=== PATIENT | female | born 1975 | race Caucasian/White ===

== ENCOUNTER 2018-07-26 01:59 | Emergency (ER) | payer OTHER ==
[2018-07-26] MEDS ORDERED: predniSONE TAB* 20 MG PO ONE (02:11)
[2018-07-26] MEDS ORDERED: EPINEPHRINE 1 MG/ML 1 ML VIAL IM ONE (02:11)
--- NOTE | 2018-07-26 02:20 | ED ---
Allergic Reaction/Systemic - HPI Summary HPI Summary: A 43 y/o female presents to [facility] with a chief complaint of a possible allergic reaction the morning of 07/26/18. The patient has a rash around both her upper extremities and feels itchy and swollen. Per triage note the patient "woke up and felt like her throat was closing". At triage she rated her pain as a 0/10 in severity. She claims that she had some SOB but took Zyrtec which has alleviated her pain. She has an inhaler for these allergy related attacks. She claims that she used to have these attacks happen periodically, but claims that she has not had these attacks "in years". Vital signs while in room - HR: 89bpm , O2 Sat: 98, BP 147/94. - History of Current Complaint Chief Complaint: EDAllergicReaction Time Seen by Provider: 07/26/18 02:07 Hx Obtained From: Patient Hx Last Menstrual Period: 05/05/12 Onset/Duration: Sudden Onset, Started hours ago, Still Present Timing: Constant, Lasting Hours Severity Initially: Mild Severity Currently: Mild Pain Intensity: 0 Pain Scale Used: 0-10 Numeric Location: Diffuse Character: Pruritus Aggravating Factor(s): Nothing Alleviating Factor(s): OTC Meds Associated Signs And Symptoms: Positive: Difficulty Breathing, Rash, Throat Tightening - Allergies/Home Medications Allergies/Adverse Reactions: Allergies Allergy/AdvReac Type Severity Reaction Status Date / Time MS Ibuprofen [From Motrin] Allergy Shakes Verified 06/02/12 10:25 MS Sulfa Drugs [Sulfa Drugs] Allergy Unknown Verified 06/02/12 10:25 Reaction Details PMH/Surg Hx/FS Hx/Imm Hx Endocrine/Hematology History: Denies: Hx Diabetes, Hx Thyroid Disease Cardiovascular History: Denies: Hx Hypertension Respiratory History: Denies: Hx Asthma, Hx Chronic Obstructive Pulmonary Disease (COPD) GI History: Denies: Hx Ulcer - Surgical History Surgery Procedure, Year, and Place: 2005 - Tubal Infectious Disease History: Denies: Hx Hepatitis, Hx Human Immunodeficiency Virus (HIV) - Family History Known Family History: Negative: Cardiac Disease, Hypertension, Diabetes - Social History Lives: With Family Alcohol Use: None Substance Use Type: Reports: None Hx Tobacco Use: No Smoking Status (MU): Never Smoked Tobacco Review of Systems Negative: Fever ENT: Other - positive: throat tightness Positive: Shortness Of Breath Positive: Rash All Other Systems Reviewed And Are Negative: Yes Physical Exam - Summary Physical Exam Summary: Appearance: Well-appearing, Well-nourished, lying in bed comfortably Skin: Mild lacy erythema around both upper extremities, no sharmaine urticaria Eyes: sclera anicteric, no conjunctival pallor ENT: mucous membranes moist, pharynx appears normal Neck: Supple, nontender Respiratory: Clear to auscultation, no signs of respiratory distress Cardiovascular: Normal S1, S2. No murmurs. Normal distal pulses in tibial and radial bilaterally. Abdomen: Soft, nontender, normal active bowel sounds present Musculoskeletal: Normal, Strength/ROM Intact Neurological: A&Ox3, awake and alert, mentation is normal, speech is fluent and appropriate Psychiatric: affect is normal, does not appear anxious or depressed Triage Information Reviewed: Yes Vital Signs Reviewed: Yes Allergic Reaction Course/Dx - Course Course Of Treatment: A 43 y/o female presents to [facility] with a chief complaint of a possible allergic reaction the morning of 07/26/18. The patient has a rash around both her upper extremities and feels itchy and swollen. Per triage note the patient "woke up and felt like her throat was closing". At triage she rated her pain as a 0/10 in severity. She claims that she had some SOB but took Zyrtec which has alleviated her pain. She has an inhaler for these allergy related attacks. She claims that she used to have these attacks happen periodically, but claims that she has not had these attacks "in years".The physical exam revealed mild lacy erythema around both upper extremities no sharmaine urticaria. In the ED course the patient was given Epinephrine IM and Prednisone PO. The patient will be discharged with a prescription for Deltasone. She is agreeable with this plan. - Diagnoses Provider Diagnoses: Allergic reaction Discharge - Sign-Out/Discharge Documenting (check all that apply): Patient Departure - DC Patient Received Moderate/Deep Sedation with Procedure: No - Discharge Plan Condition: Good Disposition: HOME Prescriptions: predniSONE TAB* [Deltasone 20 MG TAB*] 40 mg PO DAILY 4 Days #8 tab Patient Education Materials: General Allergic Reaction (ED) Referrals: Claudio Soler MD [Primary Care Provider] - - Billing Disposition and Condition Condition: GOOD Disposition: Home - Attestation Statements Document Initiated by Scribe: Yes Documenting Scribe: El Car Provider For Whom Scribe is Documenting (Include Credential): Brown Zapata MD Scribe Attestation: I, El Car, scribed for Brown Zapata MD on 07/28/18 at 1559. Scribe Documentation Reviewed: Yes Provider Attestation: The documentation as recorded by the roseyeEl accurately reflects the service I personally performed and the decisions made by me, Brown Zapata MD Status of Scribe Document: Viewed
[2018-07-26 03:38] VITALS: BP 128/80
== END 2018-07-26 03:20 | disposition home or self-care (01) ==
LOC: ED 01:59
DX: T78.40XA Allergy, unspecified, initial encounter (principal); X58.XXXA Exposure to other specified factors, initial encounter; R21 Rash and other nonspecific skin eruption; R06.00 Dyspnea, unspecified; Z88.6 Allergy status to analgesic agent; Z88.2 Allergy status to sulfonamides
CPT/HCPCS: 96372; 99282; J7512